=== PATIENT | female | born 1930 | race Caucasian/White ===

== ENCOUNTER 2017-08-30 17:22 | Emergency (ER) | payer MEDICARE, BC ==
[2017-08-30] MEDS ORDERED: NORMAL SALINE 1000 ML 1,000 ML IV ONE (18:03)
[2017-08-30] MEDS ORDERED: ONDANSETRON HCL INJ/PF 4 MG/2 ML SDV IV ONE (18:03)
--- NOTE | 2017-08-30 18:04 | ER Document Report ---
ED Medical Screen (RME) - General Chief Complaint: Vomiting/Diarrhea Stated Complaint: VOMITING, WEAKNESS, DIARRHEA Time Seen by Provider: 08/30/17 17:58 Mode of Arrival: Wheelchair Information source: Patient, Relative Notes: 87-year-old female presents with complaints of nausea vomiting diarrhea since last night. Patient notes multiple such episodes. Denies any abdominal pain at all I have greeted and performed a rapid initial assessment of this patient. A comprehensive ED assessment and evaluation of the patient, analysis of test results and completion of the medical decision making process will be conducted by additional ED providers. PHYSICAL EXAMINATION: GENERAL: Well-appearing, well-nourished and in no acute distress. HEAD: Atraumatic, normocephalic. EYES: Pupils equal round extraocular movements intact, conjunctiva are normal. ENT: Nares patent NECK: Normal range of motion LUNGS: No respiratory distress Musculoskeletal: Normal range of motion NEUROLOGICAL: Normal speech, normal gait. PSYCH: Normal mood, normal affect. SKIN: Warm, Dry, normal turgor, no rashes or lesions noted. - Related Data Allergies/Adverse Reactions: sulfamethoxazole [From Febra] Allergy (Severe, Verified 08/30/17 17:25) Severe insomnia trimethoprim [From Febra] Allergy (Severe, Verified 08/30/17 17:25) Severe insomnia Past Medical History - Past Medical History Cardiac Medical History: Denies: Hx Coronary Artery Disease, Hx Heart Attack, Hx Hypertension Pulmonary Medical History: Denies: Hx Asthma, Hx Bronchitis, Hx COPD, Hx Pneumonia Neurological Medical History: Denies: Hx Cerebrovascular Accident, Hx Seizures Musculoskeltal Medical History: Denies Hx Arthritis - Immunizations Hx Diphtheria, Pertussis, Tetanus Vaccination: No Physical Exam - Vital signs Vitals: Temp Pulse Resp BP Pulse Ox 97.8 F 103 H 16 116/64 98 08/30/17 17:37 08/30/17 17:37 08/30/17 17:37 08/30/17 17:37 08/30/17 17:37 Course - Vital Signs Vital signs: Temp Pulse Resp BP Pulse Ox 97.8 F 103 H 16 116/64 98 08/30/17 17:37 08/30/17 17:37 08/30/17 17:37 08/30/17 17:37 08/30/17 17:37
[2017-08-30 18:37] LABS: HEMATOCRIT 42.8 % (36.0-47.0); HEMOGLOBIN 14.2 g/dL (12.0-15.5); MEAN CORPUSCULAR HEMOGLOBIN 30.9 pg (27.0-33.4); MEAN CORPUSCULAR HGB CONC 33.2 g/dL (32.0-36.0); MEAN CORPUSCULAR VOLUME 93 fl (80-97); PLATELET COUNT 205 10^3/uL (150-450); RED BLOOD COUNT 4.61 10^6/uL (3.72-5.28); RED CELL DISTRIBUTION WIDTH 14.5 % (11.5-14.0); WHITE BLOOD COUNT 5.1 10^3/uL (4.0-10.5)
[2017-08-30 19:03] LABS: ABSOLUTE LYMPHOCYTES# (MANUAL) 0.2 10^3/uL (0.5-4.7); ABSOLUTE MONOCYTES # (MANUAL) 0.3 10^3/uL (0.1-1.4); ABSOLUTE NEUTROPHILS# (MANUAL) 4.6 10^3/uL (1.7-8.2); BASOPHILS % (MANUAL) 0 % (0-2); EOSINOPHILS % (MANUAL) 0 % (0-6); LYMPHOCYTES % (MANUAL) 4 % (13-45); MONOCYTES % (MANUAL) 5 % (3-13); SEGMENTED NEUTROPHILS % (MAN) 91 % (42-78); TOTAL CELLS COUNTED 100
[2017-08-30 19:04] LABS: ANISOCYTOSIS SLIGHT; PLATELET COMMENT ADEQUATE; TOXIC GRANULATION SLIGHT
[2017-08-30 19:05] LABS: ALANINE AMINOTRANSFERASE 22 U/L (9-52); ALKALINE PHOSPHATASE 58 U/L (38-126); ANION GAP 12 (5-19); ASPARTATE AMINO TRANSFERASE 35 U/L (14-36); BILIRUBIN,DIRECT 0.4 mg/dL (0.0-0.4); BILIRUBIN,TOTAL 0.7 mg/dL (0.2-1.3); BLOOD UREA NITROGEN 21 mg/dL (7-20); CALCIUM 8.7 mg/dL (8.4-10.2); CARBON DIOXIDE 23 mmol/L (22-30); CHLORIDE 107 mmol/L (98-107); GLUCOSE 119 mg/dL (75-110); LIPASE 17.9 U/L (23-300); POTASSIUM 3.9 mmol/L (3.6-5.0); SODIUM 142.2 mmol/L (137-145); TOTAL PROTEIN 7.4 g/dL (6.3-8.2)
--- NOTE | 2017-08-30 19:16 | ER Document Report ---
ED GI/ - General Mode of Arrival: Wheelchair Information source: Patient <HENRY MENEZES - Last Filed: 08/30/17 22:19> <CUCO ACOSTA - Last Filed: 08/31/17 00:32> - General Chief Complaint: Vomiting/Diarrhea Stated Complaint: VOMITING, WEAKNESS, DIARRHEA Time Seen by Provider: 08/30/17 17:58 Notes: Patient is an 87-year-old female that presents to the emergency department today with complaints of vomiting, diarrhea, and generalized weakness. Patient states she does not think she had any bad food however just prior to her symptoms beginning last night she ate turkey, dressing, juanis greens, potatoes and potatoes. Patient denies any recent medicine changes. (HENRY MENEZES) - Related Data Allergies/Adverse Reactions: sulfamethoxazole [From Febra] Allergy (Severe, Verified 08/30/17 17:25) Severe insomnia trimethoprim [From Febra] Allergy (Severe, Verified 08/30/17 17:25) Severe insomnia Past Medical History - General Information source: Patient, Relative - Social History Smoking Status: Never Smoker Cigarette use (# per day): No Chew tobacco use (# tins/day): No Frequency of alcohol use: None Drug Abuse: None Lives with: Family Family History: Reviewed & Not Pertinent Patient has suicidal ideation: No Patient has homicidal ideation: No - Past Medical History Cardiac Medical History: Reports: Hx Hypertension Past Surgical History: Reports: Hx Appendectomy - Immunizations Hx Diphtheria, Pertussis, Tetanus Vaccination: No <HENRY MENEZES - Last Filed: 08/30/17 22:19> Review of Systems - Review of Systems Constitutional: See HPI, Weakness EENT: No symptoms reported Cardiovascular: No symptoms reported Respiratory: No symptoms reported Gastrointestinal: See HPI, Diarrhea, Nausea, Vomiting. denies: Abdominal pain Genitourinary: No symptoms reported Female Genitourinary: No symptoms reported Musculoskeletal: No symptoms reported Skin: No symptoms reported Hematologic/Lymphatic: No symptoms reported Neurological/Psychological: No symptoms reported -: Yes All other systems reviewed and negative <HENRY MENEZES - Last Filed: 08/30/17 22:19> Physical Exam <HENRY MENEZES - Last Filed: 08/30/17 22:19> <CUCO ACOSTA - Last Filed: 08/31/17 00:32> - Vital signs Vitals: Temp Pulse Resp BP Pulse Ox 97.8 F 103 H 16 116/64 98 08/30/17 17:37 08/30/17 17:37 08/30/17 17:37 08/30/17 17:37 08/30/17 17:37 - Notes Notes: Physical Exam: General: Alert, appears uncomfortable. HEENT: Normocephalic. Atraumatic. PERRL. Extraocular movements intact. Oropharynx clear. Dry mucous membranes. Neck: Supple. Non-tender. Respiratory: No respiratory distress. Clear and equal breath sounds bilaterally. Cardiovascular: Tachycardic, regular rhythm. Abdominal: Normal Inspection. Soft, non-tender. No distension. Normal Bowel Sounds. Back: Non-tender. No deformity or step off. Extremities: Moves all four extremities. Upper extremities: Normal inspection. Normal ROM. Lower extremities: Normal inspection. No edema. Normal ROM. Neurological: Normal cognition. AAOx4. Normal speech. Psychological: Normal affect. Normal Mood. Skin: Warm. Dry. Normal color. (HENRY MENEZES) Course - Laboratory Result Diagrams: 08/30/17 18:18 08/30/17 18:18 <HENRY MENEZES - Last Filed: 08/30/17 22:19> - Laboratory Result Diagrams: 08/30/17 18:18 08/30/17 18:18 - Diagnostic Test Radiology reviewed: Reports reviewed <CUCO ACOSTA - Last Filed: 08/31/17 00:32> - Re-evaluation Re-evalutation: 08/30/17 20:30 Patient is an 87-year-old female who comes in with vomiting and diarrhea after eating leftovers prior to arrival. Her abdomen is soft and nontender. Patient with no acute findings on CT. Blood work within normal limits. Urine within normal limits. Patient is feeling better after fluids and nausea medication. She is taking p.o. and would like to go home. No further diarrhea. No recent antibiotics. Patient is able to ambulate without difficulty. [facility] and is to follow-up with her doctor. Return immediately if any worsening concerns or symptoms. Understands and agrees with plan. Stable for discharge home. (CUCO ACOSTA) - Vital Signs Vital signs: Temp Pulse Resp BP Pulse Ox 98.7 F 97 18 109/61 97 08/30/17 21:40 08/30/17 21:40 08/30/17 21:40 08/30/17 21:40 08/30/17 21:40 - Laboratory Laboratory results interpreted by me: 08/30/17 08/30/17 18:18 18:18 RDW 14.5 H Seg Neuts % (Manual) 91 H Lymphocytes % (Manual) 4 L Abs Lymphs (Manual) 0.2 L BUN 21 H Glucose 119 H Lipase 17.9 L Discharge <HENRY MENEZES - Last Filed: 08/30/17 22:19> <CUCO ACOSTA - Last Filed: 08/31/17 00:32> - Discharge Clinical Impression: Dehydration Vomiting Qualifiers: Vomiting type: unspecified Vomiting Intractability: non-intractable Nausea presence: with nausea Qualified Code(s): R11.2 - Nausea with vomiting, unspecified Diarrhea Qualifiers: Diarrhea type: unspecified type Qualified Code(s): R19.7 - Diarrhea, unspecified Condition: Stable Disposition: HOME, SELF-CARE Instructions: Dehydration ([facility]), Diarrhea, Nonspecific ([facility]), Vomiting ([facility]) Referrals: KHADAR CASTILLO MD [Primary Care Provider] - Follow up tomorrow Scribe Attestation: 08/31/17 00:32 I personally performed the services described in the documentation, reviewed and edited the documentation which was dictated to the scribe in my presence, and it accurately records my words and actions. (CUCO ACOSTA) Scribe Documentation - Scribe Written by Qianibe:: Bigg Rahman, 08/30/2017 195 acting as scribe for :: Ruby <HENRY MENEZES - Last Filed: 08/30/17 22:19>
[2017-08-30 19:53] LABS: APPEARANCE,URINE SLIGHTLY-CLOUDY; BILIRUBIN,URINE NEGATIVE (NEGATIVE); COLOR,URINE YELLOW; GLUCOSE, URINE NEGATIVE (NEGATIVE); KETONES,URINE NEGATIVE (NEGATIVE); LEUKOCYTE ESTERASE,URINE NEGATIVE (NEGATIVE); NITRITE,URINE NEGATIVE (NEGATIVE); PROTEIN,URINE NEGATIVE (NEGATIVE); URINE SPECIFIC GRAVITY 1.025; UROBILINOGEN,URINE NEGATIVE mg/dL (<2.0)
--- NOTE | 2017-08-30 20:23 | RADIOLOGY REPORT (SQ) ---
EXAM DESCRIPTION: CT ABD/PELVIS NO ORAL OR IV COMPLETED DATE/TIME: 08/30/2017 7:57 pm REASON FOR STUDY: abd pain COMPARISON: None. TECHNIQUE: CT scan of the abdomen and pelvis performed without intravenous or oral contrast. Images reviewed with lung, soft tissue, and bone windows. Reconstructed coronal and sagittal MPR images revi ewed. All images stored on PACS. All CT scanners at this facility use dose modulation, iterative reconstruction, and/or weight based d osing when appropriate to reduce radiation dose to as low as reasonably achievable (ALARA). [facility]: Dose Right [facility]: CareDose [facility]: Dose Right [facility]: Teradose 4D [facility]: Smart [employer] RADIATION DOSE: CT Rad equipment meets quality standard of care and radiation dose reduction techniq ues were employed. CTDIvol: 4.8 mGy. DLP: 219 mGy-cm.mGy. LIMITATIONS: None. FINDINGS: LOWER CHEST: There is a moderate hiatal hernia. No pulmonary masses or infiltrates are se en. NON-CONTRASTED LIVER, SPLEEN, ADRENALS: Evaluation limited by lack of IV contrast. No identified sign ificant masses. PANCREAS: No masses. No peripancreatic inflammatory changes. GALLBLADDER: The gallbladder is distended. There are no gallstones. RIGHT KIDNEY AND URETER: No suspicious masses. Assessment limited by lack of IV contrast. No signif icant calcifications. No hydronephrosis or hydroureter. LEFT KIDNEY AND URETER: No suspicious masses. Assessment limited by lack of IV contrast. No signifi cant calcifications. No hydronephrosis or hydroureter. AORTA AND RETROPERITONEUM: No aneurysm or dissection. No retroperitoneal masses or adenopathy. Athe rosclerosis. BOWEL AND PERITONEAL CAVITY: No obvious masses or inflammatory changes. No free fluid. APPENDIX: Surgically absent. PELVIS, BLADDER, AND ABDOMINAL WALL:No abnormal masses. No free fluid. Bladder normal. BONES: Grade 1 anterolisthesis of L4 on L5. Multilevel degenerative disc space narrowing and there a re small marginal osteophytes in the lower thoracic and upper lumbar spine. OTHER: No other significant finding. IMPRESSION: 1. Moderate hiatal hernia. 2. The gallbladder is distended. There are no gallstones. There is no ductal dilatation. 3. Anterolisthesis of L4 on L5 with multilevel degenerative disc disease and mild spondylosis. COMMENT: Quality ID # [id number]: Final reports with documentation of one or more dose reduction techniques (e.g., Automated exposure control, adjustment of the mA and/or kV according to patient size, use of iterative reconstruction technique) TECHNICAL DOCUMENTATION: JOB ID: [id number] [employer]- All Rights Reserved Reading location - IP/workstation name: [email or web address]
[2017-08-30] MEDS ORDERED: ONDANSETRON ODT 4 MG TAB (6 TAB/ER DISP) PO PRN (21:29)
[2017-08-30 21:48] VITALS: BP 109/61
== END 2017-08-30 21:48 | disposition home or self-care (01) ==
LOC: ER 17:22
DX: E86.0 Dehydration (principal); R11.2 Nausea with vomiting, unspecified; R19.7 Diarrhea, unspecified; R53.1 Weakness; I10 Essential (primary) hypertension
CPT/HCPCS: 99284; 96361; 96374; 36415; 83690; 85025; 80053; 81001; 74176; J2405; J7030; A9270